=== PATIENT | female | born 1970 | race Caucasian/White ===

== ENCOUNTER 2018-11-30 13:20 | Emergency (ER) | payer BC ==
[~2018-11-30] VITALS: Ht 154.9 cm; Wt 93.2 kg
[2018-11-30 13:31] VITALS: BP 152/91
== END 2018-11-30 15:13 | disposition home or self-care (01) ==
LOC: ER 13:21
DX: S90.32XA Contusion of left foot, initial encounter (principal); Z88.2 Allergy status to sulfonamides; W20.8XXA Other cause of strike by thrown, projected or falling object, initial encounter; Y93.89 Activity, other specified; Y92.89 Other specified places as the place of occurrence of the external cause; Y99.9 Unspecified external cause status
CPT/HCPCS: 73630; 99283

== ENCOUNTER 2025-01-22 18:09 | Emergency (ER) | payer BC ==
[~2025-01-22] VITALS: Ht 157.5 cm; Wt 95.9 kg
[~2025-01-22 18:09] MED LIST: MECL-302 PO
--- NOTE | 2025-01-22 19:41 | Physician Documentation ---
History of Present Illness ~ Chief Complaint: Arm Pain Stated Complaint: RT ARM PAIN Time Seen by MD: 18:54 HPI 54-year-old female with a history of tennis elbow presents with pain and swelling in the right forearm today. She states she did not do anything the causing acute injury other than reaching for bar of soap today. Patient states that she did not previously have a cortisone steroid shot in her right effect of the elbow Day of Onset: Jan 22, 2025 Tetanus within 5 years: No Medication Reconciliation Allergies: Coded Allergies: Sulfa (Sulfonamide Antibiotics) (Verified Allergy, Intermediate, 11/30/18) Scheduled Meclizine HCl (Meclizine HCl), 1 TAB PO TID PRN Past Medical History Past Medical History: No Pertinent History Past Surgical History: noncontributory Alcohol Use: None Drug Use: none Lives with: Spouse Lives In: Home Review of Systems All Other Systems at this time: Reviewed and Negative ROS As stated above in the HPI, otherwise all systems are reviewed and negative. Physical Exam Vital Signs: Temperature: 99.1, Source: Temporal, Heart Rate: 86, Respiratory Rate: 20, BP: 164/108, Pulse Oximetry: 96, Weight: 95.900 Oxygen Flow Rate: 0 Physical Exam General: Alert, no apparent distress. HEENT: PERRL, EOMI, no injection, moist mucous membranes. Extremities: Normal range of motion, tenderness to the extensor tendons proximal insertion site right side Neurologic: Oriented x4. Psychiatric: Normal mood and affect. Skin: Normal color, warm and dry. No edema, no ecchymosis. Progress Results/Orders Results/Orders Vital Signs 01/22/25 01/22/25 18:18 20:21 Temp 99.1 98.6 Pulse 86 84 Resp 20 18 B/P (MAP) 164/108 160/99 Pulse Ox 96 99 O2 Flow Rate 0 Medical Decision Making Findings Suspect a minor tear or pull of the extensor tendons at the insertion site in the right elbow. This may be due to patient's previous injury requiring corticosteroid injections essentially causing decreased connective tissue strength. I do not suspect full tear at this time patient is still meets criteria for physical therapy Departure Disposition: HOME / SELF CARE / HOMELESS Impression: Primary Impression: Tendinitis Additional Impression: Elbow pain, right Condition: Stable Discharge Instructions: Muscle Strain, [id number], Tendinitis Additional Instructions: Sure to follow up with your orthopedic surgeon and/or primary care. You may benefit from a referral to go see his physical therapist Referrals: NO PRIMARY CARE PROVIDER (PCP) Education Educated: Patient Educated regarding: diagnosis Signature Scribe Signature: t Attestation: Scribed for Jason Mae Bilingual Medical Receptionist by Jason Mohan NP . 01/22/25 23:25 JASON MAE NP Jan 22, 2025 19:41
[2025-01-22 20:21] VITALS: BP 160/99; PULSE 84; RESP 18; TEMP 98.6; O2SAT 99
== END 2025-01-22 20:23 | disposition home or self-care (01) ==
LOC: ER 18:09
DX: M77.9 Enthesopathy, unspecified (principal); M79.631 Pain in right forearm; M25.521 Pain in right elbow; Z88.2 Allergy status to sulfonamides
CPT/HCPCS: 99282

== ENCOUNTER 2025-05-30 12:17 | Inpatient (IN) | payer BC ==
[~2025-05-30] VITALS: Ht 157.5 cm; Wt 88.2 kg
[2025-05-30] VITALS (15 sets, daily range): BP systolic 100–133; BP diastolic 52–83; PULSE 18–93; RESP 16–28; TEMP 97.8–98; O2SAT 91–100
--- NOTE | 2025-05-30 12:32 | Physician Documentation ---
History of Present Illness General Chief Complaint: Abdominal Pain w/vomiting Stated Complaint: GALLBLADDER PAIN Time Seen by MD: 12:32 History of Present Illness Initial Comments The patient is a 55-year-old female who complains of proximally 2 hours with the epigastric pain that radiates to her back with nausea. Patient states she had an episode on Wednesday of similar pain that lasted about 8 hours with nausea and vomiting. The patient states she has a known gallstones. Patient states she just eaten and then developed the abdominal pain. The patient complains of some subjective chills and decreased appetite since there episode on Wednesday. The patient complains of some nausea but no vomiting today. Medication Reconciliation Allergies: Coded Allergies: Sulfa (Sulfonamide Antibiotics) (Verified Allergy, Intermediate, 05/30/25) Scheduled Meclizine HCl (Meclizine HCl), 1 TAB PO TID PRN Past Medical History Past Medical History: No Pertinent History Past Surgical History: noncontributory Alcohol Use: None Drug Use: none Lives with: Spouse Lives In: Home Review of Systems All Other Systems at this time: Reviewed and Negative Physical Exam Physical Exam Vital Signs: Temperature: 98.0, Source: Temporal, Heart Rate: 84, Respiratory Rate: 20, BP: 184/118, Pulse Oximetry: 99, Weight: 88.180 Oxygen Flow Rate: 0 Physical Exam VITALS: Reviewed and as above. GENERAL: Alert, no apparent distress. HEENT: Normocephalic, atraumatic, PERRL, EOMI, dry mucosa, no erythema RESPIRATORY: Lungs clear, normal breath sounds, no respiratory distress. CHEST: No accessory muscle use, no retractions CV: Regular rate, rhythm, no edema, no murmur, No: JVD GI: Soft, tender right upper abdomen, no rebound, guarding, or rigidity BACK: No CVA tenderness, or swelling MUSCULOSKELETAL No deformities, no edema SKIN: Warm and dry, no rash NEURO: Oriented x4, No motor or sensory deficit PSYCH: Normal mood and affect, no agitation Progress Results/Orders Results/Orders Orders - OHLNAVID ARREGUIN MD Hydromorphone 0.5 Mg/0.5 Ml/Pf (Dilaudid (05/30/25 12:40) Page Hospitalist (05/30/25 14:38) Fill Out Med Reconciliation (05/30/25 14:38) Cult Urine + [address] (05/30/25 14:42) Page Hospitalist (05/30/25 ) Completed Orders - OHLFS,NAVID Eastman MD Hcg, Ur Ql (05/30/25 12:26) Cbc/Diff (05/30/25 12:26) BMP (05/30/25 12:26) Lipase (05/30/25 12:26) CMP (05/30/25 12:26) Normal Saline 1000ml (0.9% Sodium Chlori (05/30/25 12:40) Normal Saline 1000ml (0.9% Sodium Chlori (05/30/25 12:40) Metoclopramide Inj (Reglan Inj) (05/30/25 12:40) Diphenhydramine Inj (Benadryl Inj.) (05/30/25 12:40) Ketorolac Trometh 15mg/Ml Vial (Toradol (05/30/25 12:45) Ceftriaxone 2gm/D5w 50ml Bag (Rocephin 2 (05/30/25 13:20) Ua W/Microscopic, Cult If Ind (05/30/25 14:00) Lipid Panel (05/30/25 12:37) Vital Signs 05/30/25 05/30/25 05/30/25 12:20 13:00 15:07 Temp 98.0 98.0 Pulse 84 84 Resp 20 14 14 B/P (MAP) 184/118 185/96 (125) Pulse Ox 99 98 O2 Flow Rate 0 0 Laboratory Tests Test 05/30/25 12:37 05/30/25 14:00 White Blood Count 8.4 Red Blood Count 5.15 Hemoglobin 14.5 Hematocrit 42.4 Mean Corpuscular Volume 82.3 Mean Corpuscular Hemoglobin 28.2 Mean Corpuscular Hemoglobin Concent 34.2 Red Cell Distribution Width 13.2 Platelet Count 219 Mean Platelet Volume 8.1 Neutrophils (%) (Auto) 69.3 Lymphocytes (%) (Auto) 21.8 Monocytes (%) (Auto) 6.3 Eosinophils (%) (Auto) 2.0 Basophils (%) (Auto) 0.6 Neutrophils # (Auto) 5.9 Lymphocytes # (Auto) 1.8 Monocytes # (Auto) 0.5 Eosinophils # (Auto) 0.2 Basophils # (Auto) 0.0 CBC Comment Sodium Level 142 Potassium Level 3.8 Chloride Level 110 H Carbon Dioxide Level 24.7 Anion Gap 7 L Blood Urea Nitrogen 14 Creatinine 0.83 Estimated GFR/1.73 m2 71 BUN/Creatinine Ratio 16.9 Glucose Level 98 Calcium Level 8.8 Total Bilirubin 1.1 H Aspartate Amino Transf (AST/SGOT) 82 H Alanine Aminotransferase (ALT/SGPT) 51 Alkaline Phosphatase 93 Total Protein 7.4 Albumin 3.7 Globulin 3.7 Albumin/Globulin Ratio 1.0 L Triglycerides Level 128 Cholesterol Level 250 H LDL Cholesterol 167 H HDL Cholesterol 64 H Cholesterol/HDL Ratio 3.9 Lipase 42 Chemistry Comments Urine Specimen Description Urinal Urine Color Yellow Urine Clarity Clear Urine pH 6.5 Urine Specific [place] <=1.005 Urine Protein Negative Urine Glucose (UA) Negative Urine Ketones Negative Urine Occult Blood Negative Urine Nitrite Negative Urine Bilirubin Negative Urine Urobilinogen 0.2 Urine Leukocyte Esterase Trace H Urine RBC None seen Urine WBC 5-10 H Urine Squamous Epithelial Cells Moderate Urine Bacteria Few Urine Mucus None seen Urine Culture Indicated Indicated Volume Urine Centrifuged 10 ml Urine HCG, Qualitative Negative Urine Comment Microbiology Date/Time Source Procedure Growth Status 05/30/25 14:42 Urine Urinal (Er Only) Urine Culture - Preliminary NO GROWTH AFTER 1 DAY Resulted Medical Decision Making Additional information obtaine: old records Findings Be patient presented with abdominal pain and right upper abdominal tenderness. Patient was found to have gallstones including one stuck in the neck of her gallbladder. The patient was given pain medication and a dose of ceftriaxone, be patient's labs and imaging have been reviewed. Patients prior hospitalizations have been reviewed. she will patient will be admitted to the hospitalist and I have discussed the case with the surgeon physician surgeon Differential Diagnosis gastritis GERD colitis Departure Admitted to Inpatient Unit: yes, to hospitalist Impression: Primary Impression: Biliary colic Referrals: NO PRIMARY CARE PROVIDER (PCP) Signature Scribe Signature: no scribe Attestation: The note accurately reflects work and decisions made by me.Navid Frank MD 05/31/25 14:12 NAVID FRANK MD May 30, 2025 12:32
[2025-05-30] MEDS ORDERED: ketorolac trometh 30MG/ML vial 30 MG/ML VIAL IV ONE (12:40)
[2025-05-30] MEDS: normal saline 1000ML IV soln IVB ONE ×2 (12:49→14:10)
[2025-05-30 12:50] LABS: MEAN PLATELET VOLUME 8.1 FL (7.4-10.4); RED CELL DISTRIBUTION WIDTH 13.2 % (11.5-14.5)
[2025-05-30] MEDS: metoclopramide 5 mg/ml inj IV ONE (12:52)
[2025-05-30] MEDS: ketorolac trometh 15mg/ml vial 15 MG/ML ML IV ONE (13:00)
[2025-05-30 13:20] LABS: CREATININE 0.83 MG/DL (0.40-0.90); TOTAL CARBON DIOXIDE 24.7 MMOL/L (24-32); eCRCL 59 ML/MIN; eGFR 71 ML/MIN
[2025-05-30] MEDS: CefTRIAXone 2gm/D5W 50ml BAG 50 ML IV ONE (14:08)
[2025-05-30 14:23] LABS: LEUKOCYTE ESTERASE ,URINE TRACE (Neg); NITRITES, URINE NEGATIVE (Neg); OCCULT BLOOD,URINE NEGATIVE (Neg); URINE HCG NEGATIVE (NEG)
[2025-05-30 14:40] LABS: UA COLLECTION TYPE URINAL
[2025-05-30 14:42] LABS: MUCUS STRANDS NONE SEEN /LPF (Neg); SQUAMOUS EPITHELIAL CELL,UR MODERATE /LPF (FEW)
[2025-05-30] MEDS ORDERED: ondansetron/PF 4mg/2ml inj IV PRN (15:20)
[2025-05-30] MEDS ORDERED: magnesium sulf-water 4G/100mL 100 ML IV PRN (15:20)
[2025-05-30] MEDS ORDERED: mag hydrox/Alum hydrox/simeth 30ml oral suspension PO PRN (15:20)
[2025-05-30] MEDS ORDERED: magnesium hydroxide 30ml (MOM) UD suspension PO PRN (15:20)
[2025-05-30] MEDS ORDERED: magnesium Cl slow-release 64mg tablet PO PRN (15:20)
[2025-05-30] MEDS ORDERED: HYDROcodone/acetaminophen 5mg/325mg tablet PO PRN (15:20)
[2025-05-30] MEDS ORDERED: magnesium sulf-water 2g/50mL 50 ML IV PRN (15:20)
[2025-05-30] MEDS ORDERED: potassium Cl 40MEQ/1/2NS 520ml 520 ML IV PRN (15:20)
[2025-05-30] MEDS ORDERED: potassium Cl 20 mEq SR tablet PO PRN ×2 (15:20)
[2025-05-30] MEDS: normal saline 1000ml 1,000 ML IV SCH (15:31)
--- NOTE | 2025-05-30 15:32 | RADIOLOGY REPORT ---
INDICATION: acute fernanda TECHNIQUE: Multiple real-time sonographic images were obtained of the right upper quadrant. COMPARISON: None FINDINGS: The liver demonstrates homogeneous echotexture without focal mass lesions. The liver measures 17 cm. There is no intrahepatic or extrahepatic ductal dilatation. The common duct measures 0.6 cm. Cholelithiasis. The gallbladder wall measures 0.2 cm and is within normal limits. Positive sonographic Gatica's. The right kidney measures 10.1 cm. The right kidney is normal in contour, size, and shape. The echogenicity is normal. There is no hydronephrosis. The pancreas is not well visualized due to overlying bowel gas. IMPRESSION: Cholelithiasis and positive sonographic Gatica's. Clinical correlation advised.
--- NOTE | 2025-05-30 15:55 | ELECTROCARDIOGRAPH REPORT ---
[facility] Test Date: 2025-05-30 Test Time: 15:44:10 Pat Name: AMARIS MOSER Department: EMERGENCY ROOM Room: [place] [address] Gender: F Production Roustabout: BRYANT : 1970 Requested By: DARSHANA HERNANDEZ Order Number: [id number] Reading MD: Dr. WINSTON Solomon Measurements Intervals [place] Rate: 74 P: 69 [place]: 127 QRS: 60 QRSD: 88 T: 62 QT: 416 QTc: 462 Interpretive Statements Sinus rhythm Low voltage, precordial leads Electronically Signed On 06-01-2025 16:51:[address] WINSTON Solomon Please click the below link to view image of tracing.
--- NOTE | 2025-05-30 16:08 | HISTORY AND PHYSICAL-Residence ---
History & Physical Providers to CC Resident Creating Document: KANDI PADGETT, UZAIR ~ History of Present Illness Reason for Admit\Complaint: Abdominal pain History of Present Illness This is a 55-year-old woman who presented to the ER with complaints of nausea, right upper quadrant and epigastric pain, radiating to the back, between her shoulder blades. Her symptoms started on Wednesday, after dinner. She attributed her nausea and abdominal pain to eating from a restaurant. Pain was cramping, 8/10, radiating to shoulder blades, relieved with medication, no aggravating factors. She had 4 episodes of vomiting, continue with particles. She had a similar episode of nausea and pain today morning which prompted her to come to the ER. No complaints of fever/chills, diarrhea/constipation, chest pain, palpitation, dizziness, syncope. no history of abdominal distention, no symptoms of obstructive jaundice. No similar complaints in the past. She has history of high blood pressure, was on lisinopril 10 mg p.o. daily, which she discontinued after talking to her primary care provider. She has a episodes of high reading of the pressure at home going up to 150s over 80s. Allergies: Coded Allergies: Sulfa (Sulfonamide Antibiotics) (Verified Allergy, Intermediate, 05/30/25) Home Medications Home Medications Active Meclizine HCl 25 Mg Tablet 1 Tab PO TID PRN 10 Days Past Medical History Past Medical History Hypertension, not on any medication Past Surgical History Surgical History Comment Appendectomy Neck, wrist, knee surgeries. Past Social History Smoking: Non-Smoker Alcohol Use: Occasionally Drug Use: Marijuana Lives with: Alone Lives In: Home ROS All Other Systems: Reviewed and Negative Gastrointestinal: Reports: abdominal pain, nausea Exam Vitals: Vital Signs Date Time Temp Pulse Resp B/P (MAP) Pulse Ox O2 Delivery O2 Flow Rate FiO2 05/30/25 15:12 05/30/25 15:07 98.0 84 14 98 0 General: General: Obese, Well alert, well oriented, not confused, not agitated, not in acute distress, well cooperated during the physical. HEENT: Conjunctive are pink, sclerae clear, no icterus, pupil is equal in both sides, reactive to light, no ear discharge, no pharyngeal erythema or an edema. Neck: Supple, no JVD, no lymphadenopathy and thyromegaly. Chest: Equal air entry on both lungs, no added sounds, no wheeze. Cardiovascular: S1-S2 regular sinus rhythm and, regular rate, no gallops, no rubs, no murmurs Abdomen: Gatica sign positive, tenderness to deep palpation in right upper quadrant and epigastric region. Bowel sounds present on auscultation, soft, no guarding, no rigidity Extremities: No obvious deformities, no pitting edema bilaterally, capillary refill intact, peripheral pulsations are intact on both sides Central Nervous System: No focal neurological deficits, no motor or sensory weakness in all 4 extremities, could move all 4 extremities, 2+ deep tendon reflexes, negative Babinski. Musculoskeletal: No joint swelling, deformities, inflammations, and no scoliosis and back tenderness Skin: Warm and dry. Diagnostic Data Last Recorded Lab Results: 05/30/25 1237 05/30/25 1237 Counseling Services Smoking & Tobacco Cessation: N/A Advance Care Planning Advanced Care plannin - 30 Minutes Additional Plan Cholelithiasis with choledocholithiasis, without evidence of cholecystitis. Vitals: High blood pressure, 180/100. No signs of infective process, CBC normal CMP shows raised AST with normal bilirubin level and alkaline phosphatase, normal urinalysis. Normal amylase Ultrasound shows cholelithiasis with CBD 0.6 cm in diameter. Plan: Surgery consulted, NPO from now, surgery planned at 5:00 p.m. today. Pain well controlled with [place] and hydromorphone. Nausea well controlled with Zofran and Reglan p.r.n. One dose of antibiotics ceftriaxone 1 g with Zosyn to be given in ER. Awaiting lipid panel. Hypertension Continuing of high blood pressure might be due to pain, acute setting. Not on any medication, ordered echo. Code status: Full code DVT prophylaxis: Heparin 5000 subcutaneous q.8h Analgesia/sedation: Morphine/[place] Line/tube: PIV GI prophylaxis: None Nutrition: Regular diet PT: Ordered. Prognosis: Guarded Disposition: Surgery at 5:00 p.m. today, admit to surgery. I discussed the code status with the patient for 16 minutes including various resuscitative methods, the patient chose to be full code. Kandi Padgett MD PGY1, Internal Medicine [facility] Date of Service: May 30, 2025 Billing Provider: DARSHANA HERNANDEZ MD Common Visit Codes: [id number] INP/OBS CARE (HIGH) Secondary Visit Codes: [id number] CARE PLAN 30 MINUTES KANDI PADGETT, RES May 30, 2025 16:08 DARSHANA HERNANDEZ MD Jun 01, 2025 06:32
--- NOTE | 2025-05-30 16:13 | PROGRESS NOTE ---
Progress Note ID Providers to CC ~ Progress Note Progress Note: pt seen and examined-findings consistent ith symptomatic cholelithiasis-pt needs robo fernanda-possible open-discussed procedure including risks/benefits/alternatives RASHI DOSHI MD May 30, 2025 16:13
[2025-05-30 16:19] LABS: CHOL/HDL RATIO 3.9 (0.00-4.99); LDL CHOLESTEROL 167 MG/DL (50-100)
[2025-05-30] MEDS ORDERED: iohexol 300mg/ml 100ml inj. ONE (16:26)
--- NOTE | 2025-05-30 17:11 | RADIOLOGY REPORT ---
Exam: CT CT ABDOMEN PELVIS W/ IV CONTRAST History: pain Comparison Study: US ULTRASOUND OF ABDOMEN on DOS: 05/30/25 TECHNIQUE: A digital disaster recovery consultant image was obtained. During the uneventful, intravenous administration of contrast material, multislice data acquisition was obtained through the abdomen and pelvis. The data set was subsequently reconstructed into multiplanar reformats. RADIATION DOSE: CTDI vol 30.6 mGy. DLP 1591.3 mGy.cm Findings: Lungs: The lung bases are clear. Liver: Unremarkable. Spleen: Unremarkable. Pancreas: Unremarkable. Gallbladder: Cholelithiasis and choledocholithiasis. Intra and extrahepatic biliary ductal dilatation. Trace pericholecystic stranding. Adrenals: Unremarkable Kidneys: Unremarkable. Pelvic Viscera: 3.0 cm right adnexal cyst. Vasculature: Atherosclerotic aortoiliac calcification. Retroperitoneum: Unremarkable. Bowel: No bowel obstruction. Musculoskeletal: Unremarkable. Soft tissues: Unremarkable Impression: 1. Cholelithiasis and choledocholithiasis with possible early acute cholecystitis. Further clinical correlation is suggested. 2. Additional findings as detailed.
[2025-05-30] MEDS ORDERED: BUPIVAcaine 2.5mg/ml inj 50ml vial (contains preservative) ONE (17:26)
[2025-05-30] MEDS ORDERED: midazolam 1 mg/ML 2ml injection ONE (17:35)
[2025-05-30] MEDS ORDERED: fentaNYL/PF 50MCG/1 ML 2ML syringe ONE ×2 (17:35→17:54)
[2025-05-30] MEDS ORDERED: LIDOcaine 2% (20mg/ml) 5ml vial ONE (17:39)
[2025-05-30] MEDS ORDERED: propofol inj 20 ML IV ONE (17:39)
[2025-05-30] MEDS ORDERED: ketorolac trometh 30MG/ML vial 30 MG/ML VIAL ONE (17:47)
[2025-05-30] MEDS ORDERED: acetaminophen 1,000mg/100ml IV 100 ML IV ONE (17:48)
[2025-05-30] MEDS ORDERED: fentaNYL/PF 50MCG/1 ML 2ML syringe IV PRN ×2 (18:25)
[2025-05-30] MEDS ORDERED: labetalol 20mg/4ml (5mg/ml) syringe IV PRN (18:25)
[2025-05-30] MEDS ORDERED: enalaprilat 1.25mg/ml 2ml vial IV PRN (18:25)
[2025-05-30] MEDS ORDERED: HYDROmorphone/PF 0.2 MG/ML SYRINGE IV PRN ×2 (18:25)
[2025-05-30] MEDS ORDERED: ondansetron/PF 4mg/2ml inj ONE (18:45)
[2025-05-30] MEDS ORDERED: dexamethasone sod phosphate 4mg/ml inj. ONE (18:45)
--- NOTE | 2025-05-30 19:02 | OPERATIVE REPORT ---
Operative Report Providers to CC ~ Date of Procedure: May 30, 2025 Pre-Operative Diagnosis: cholelithiasis Post-Operative Diagnosis SAME as PRE-Op Procedure Performed jaz michael Surgeon: landen Biomedical Specialist none Anesthesiologist: Dmitry Puga Type of Anesthesia: General Findings: distended gb/adhesions Estimated Blood Loss: 50 ml Specimen Removed: RASHI Mejia MD May 30, 2025 19:02
[2025-05-30] MEDS ORDERED: HYDROmorphone inj. 0.5 MG/0.5 ML DISP.SYRIN IV PRN (19:10)
[2025-05-30] MEDS ORDERED: PCA WASTE DOCUMENTATION 1 MG ML MC SCH (19:10)
[2025-05-30] MEDS: morphine 4 MG/ML inj SYRINge IV PRN (19:40)
[2025-05-30] MEDS: K and/or MAG REPLACEMENT MC SCH (20:00)
[2025-05-30] MEDS: heparin, porcine 5000 units/ml vial SQ SCH (21:35)
[2025-05-30] MEDS: docusate sod 100mg capsule PO SCH (21:37)
[2025-05-30] MEDS: ringers solution, lacted 1,000 ML IV SCH (23:07)
[2025-05-31] VITALS (9 sets, daily range): BP systolic 117–177; BP diastolic 64–87; PULSE 62–75; RESP 14–20; TEMP 97.8–99.1; O2SAT 95–98
[2025-05-31] MEDS: ceFOXitin 1 GM/D5W 50mL IVPB 50 ML IV SCH (01:00)
[2025-05-31] MEDS: HYDROcodone/acetaminophen 5mg/325mg tablet PO PRN (01:12)
[2025-05-31] MEDS: ondansetron/PF 4mg/2ml inj IV PRN ×3 (01:17→17:30)
[2025-05-31 05:01] LABS: MEAN PLATELET VOLUME 8.2 FL (7.4-10.4); RED CELL DISTRIBUTION WIDTH 13.6 % (11.5-14.5)
[2025-05-31 05:30] LABS: CREATININE 0.96 MG/DL (0.40-0.90); TOTAL CARBON DIOXIDE 21.3 MMOL/L (24-32); eCRCL 51 ML/MIN; eGFR 60 ML/MIN
[2025-05-31] MEDS: piperacillin/tazo 4.5gm/100ml 100 ML IV SCH (12:55)
--- NOTE | 2025-05-31 14:24 | PROGRESS NOTE ---
Progress Note ID Providers to CC ~ Progress Note Progress Note: pain improving/vss/abd-drain output noted/labs noted a/p 1. s/p fernanda-lfts up/repeat labs in am RASHI DOSHI MD May 31, 2025 14:24
--- NOTE | 2025-05-31 19:20 | PROGRESS NOTE- Residence ---
Progress Note - Resident Providers to CC Resident Creating Document: KANDI SHIRLEY, UZAIR ~ Central Line/PICC still needed: N\A Noel-Non Protocol Noel Indications Met/Not Met: F/C Indications Not Met Antibiotic Timeout Antibiotic Ordered?: Yes Subjective Patient was examined bedside. Postop day 1 cholecystectomy. Tolerated the procedure well. No acute symptoms overnight. Currently on full liquid diet. Complaining of pain in the operative site, well managed with [place]. Passing flatus, not passed stools yet. Objective Vital Signs Date Time Temp Pulse Resp B/P (MAP) Pulse Ox O2 Delivery O2 Flow Rate FiO2 05/31/25 17:27 20 05/31/25 10:15 126/70 (88) 05/31/25 10:00 98.9 72 97 Room Air 05/31/25 08:00 0.0 Result Diagram: 05/31/2544405/31/25444 General: Well alert, well oriented, not confused, not agitated, not in acute distress, well cooperated during the physical. HEENT: Conjunctive are pink, sclerae clear, no icterus, pupil is equal in both sides, reactive to light, no ear discharge, no pharyngeal erythema or an edema. Neck: Supple, no JVD, no lymphadenopathy and thyromegaly. Chest: Equal air entry on both lungs, no added sounds, no wheeze. Cardiovascular: S1-S2 regular sinus rhythm and, regular rate, no gallops, no rubs, no murmurs Abdomen: Surgical site bandaged, no soakage of bandages, Bowel sounds present on auscultation, soft, nontender, no guarding, no rigidity Extremities: No obvious deformities, no pitting edema bilaterally, capillary refill intact, peripheral pulsations are intact on both sides Central Nervous System: No focal neurological deficits, no motor or sensory weakness in all 4 extremities, could move all 4 extremities, 2+ deep tendon reflexes, negative Babinski. Musculoskeletal: No joint swelling, deformities, inflammations, and no scoliosis and back tenderness Skin: Warm and dry. Counseling Services Smoking & Tobacco Cessation: N/A Advance Care Planning Advanced Care planning: N/A Assessment Assessment Assessment: Recurrent cholelithiasis with choledocholithiasis. Postop day 1 cholecystectomy. Monitoring LFTs. Plan to transfer for ERCP in case LFTs worsen. Plan Plan Cholelithiasis with choledocholithiasis, without evidence of cholecystitis. Vitals: High blood pressure No signs of infective process, CBC normal without leukocytosis CMP hyperbilirubinemia with markedly raised AST and ALT. Might be secondary to intraoperative process. Ultrasound shows cholelithiasis with CBD 0.6 cm in diameter. Abdominal CT shows choledocholithiasis. Plan: Started Zosyn 4.5 g q.8h Pain well controlled with [place], nausea well controlled with Zofran and Reglan p.r.n. Monitor LFTs. Plan to transfer her to a center with ERCP in case liver function tests worsen. Dr. Keating informed. Advance diet as per surgery recommendation. Hypertension and dyslipidemia ASCVD score 5.5% Patient was on lisinopril a couple of months back before she discussed with the primary care provider and stopped. She has consistently elevated high blood pressure. Currently not interested in starting any medications after discussing the risks and benefits of elevated blood pressure. She needs to be started on moderate intensity statin because of 10 year risk between 5-7.5% Code status: Full code DVT prophylaxis: Heparin 5000 subcutaneous q.8h Analgesia/sedation: Morphine/[place] Line/tube: PIV GI prophylaxis: None Nutrition: Full liquid PT: Ordered. Prognosis: Guarded Disposition: Monitoring LFTs. Plan to transfer for ERCP in case LFTs worsen. Kandi Shirley MD PGY1, Internal Medicine [facility] Date of Service: May 31, 2025 Billing Provider: DARSHANA HERNANDEZ MD Common Visit Codes: [id number] INP/OBS CARE(HIGH) KANDI SHIRLEY, RES May 31, 2025 19:20 DARSHANA HERNANDEZ MD Jun 01, 2025 06:31
--- NOTE | 2025-06-01 03:55 | CONSULTATION ---
DATE OF CONSULTATION: 05/30/2025 DICTATING PHYSICIAN: Kenneth Keating MD REASON FOR CONSULTATION: Evaluation of abdominal pain. HISTORY OF PRESENT ILLNESS: This is a 55-year-old female with complaints of abdominal discomfort. Ultrasound revealed multiple stones. Radiographs were requested. On further questioning, the patient complains of epigastric pain, precipitated by fatty food intake. No history of peptic ulcer disease. She had a couple of episodes of similar type symptoms, both precipitated by fatty food intake. PAST MEDICAL HISTORY: Negative. PAST SURGICAL HISTORY: Appendectomy. Neck, wrist and knee procedures. HOME MEDICATIONS: Meclizine. ALLERGIES: TO SULFA. SOCIAL HISTORY: The patient denies tobacco use. Occasional alcohol use. She uses PCP. PHYSICAL EXAMINATION: GENERAL: She is a well-nourished female, in no distress. VITAL SIGNS: Unremarkable. HEART: Regular rate and rhythm. LUNGS: Clear to auscultation. ABDOMEN: Shows some epigastric tenderness. EXTREMITIES: Unremarkable. NEUROLOGIC: Nonfocal. LABORATORY DATA: WBC 8, hematocrit of 42, platelet count is 219. Chemistries include total bilirubin 1.1, AST 82, ALT 51, alkaline phosphatase 93, and cholesterol is 250. IMAGING STUDIES: Ultrasound reveals multiple stones. CAT scan confirms the presence of multiple stones and question of the common duct stone noted. IMPRESSION: Question of choledocholithiasis. RECOMMENDATIONS: Bilirubin is normal. The patient may need ERCP. If bili becomes more elevated, stones may pass. Kenneth Keating MD TID: [id number] RECEIPT: [id number] CARLOZ/Domi Lozano
--- NOTE | 2025-06-01 04:01 | OPERATIVE REPORT ---
DATE OF SURGERY: 05/30/2025 DICTATING PHYSICIAN: Kenneth Keating MD PREOPERATIVE DIAGNOSES: Cholelithiasis, choledocholithiasis. POSTOPERATIVE DIAGNOSES: Cholelithiasis, choledocholithiasis. PROCEDURE PERFORMED: Robotic cholecystectomy. SURGEON: Kenneth Keating MD ANESTHESIA: General/Dr. Puga. DRAINS: Hemanth x 1. INDICATIONS FOR OPERATION: This is a 55-year-old female who presented with recurrent abdominal discomfort, found to have cholelithiasis with choledocholithiasis. The was normal. She is scheduled for robotic cholecystectomy with a plan to watch her over the course of the next few days and see if her common duct stone passes. INTRAOPERATIVE FINDINGS: Distended gallbladder with adhesions. DESCRIPTION OF PROCEDURE: The patient was placed supine on the operating table. After induction of general anesthesia and placement of endotracheal tube, the abdomen was prepped and draped. A subxiphoid incision was then made and Lora port placed using open technique and pneumoperitoneum was begun by insufflation of CO2. Additional ports were placed in lower abdomen. Robot was then brought to the field. Camera port was then docked. Camera placed, camera targeted. Additional ports were then docked and instruments placed. Abdomen was then explored. The patient had a second port placed because of too high a position of the camera. Gallbladder fundus was grasped and retracted cephalad. Adhesions were taken down. Cystic duct identified, isolated, ligated, clipped and divided the cystic artery. The gallbladder was mobilized off the gallbladder fossa. When hemostasis was found to be adequate, robotic instruments were removed as well as robot was removed from the field. Gallbladder was placed in the Endobag using laparoscope. Abdomen was copiously irrigated with large amount of antibiotic-containing solution. Hemostasis was found to be adequate. A drain was placed through a port incision directly in the gallbladder fossa. Ports were removed under laparoscopic vision without active bleeding. The final port and camera were withdrawn and the pneumoperitoneum was evacuated. Wounds were closed in layers. Skin was closed with subcuticular stitch and dressing was applied. The patient was transferred to recovery in stable condition. Kenneth Keating MD TID: [id number] RECEIPT: [id number] /[facility] – [place]
[2025-06-01 04:56] LABS: MEAN PLATELET VOLUME 8.2 FL (7.4-10.4); RED CELL DISTRIBUTION WIDTH 13.6 % (11.5-14.5)
[2025-06-01 05:15] LABS: CREATININE 1.08 MG/DL (0.40-0.90); TOTAL CARBON DIOXIDE 25.8 MMOL/L (24-32); eCRCL 45 ML/MIN; eGFR 52 ML/MIN
[2025-06-01 07:00] VITALS: BP 114/58; PULSE 56; RESP 18; TEMP 98.5; O2SAT 96
[2025-06-01 07:25] VITALS: RESP 18; O2SAT 96
[2025-06-01 10:06] VITALS: BP 116/63; PULSE 63; RESP 14; TEMP 97.8; O2SAT 95
[2025-06-01] MEDS: HYDROmorphone inj. 0.5 MG/0.5 ML DISP.SYRIN IV PRN (11:18)
[2025-06-01] MEDS ORDERED: magnesium hydroxide 30ml (MOM) UD suspension PO SCH (12:30)
[2025-06-01] MEDS: magnesium hydroxide 30ml (MOM) UD suspension PO SCH (12:49)
--- NOTE | 2025-06-01 13:03 | PROGRESS NOTE ---
Progress Note ID Providers to CC ~ Progress Note Progress Note: complains of pain/vss/abd-mild distention/labs noted a/p 1. s/p fernanda-bili improving/diet as jaquelin-repeat lfts in am RASHI DOSHI MD Jun 01, 2025 13:03
[2025-06-01] MEDS: ketorolac trometh 30MG/ML vial 30 MG/ML VIAL IV SCH (13:59)
[2025-06-01 18:00] VITALS: BP 122/63; PULSE 61; RESP 14; TEMP 97.9; O2SAT 95
--- NOTE | 2025-06-01 18:21 | PROGRESS NOTE- Residence ---
Progress Note - Resident Providers to CC Resident Creating Document: ALFA RUFFIN, UZAIR ~ Central Line/PICC still needed: No Noel-Non Protocol Noel Indications Met/Not Met: F/C Indications Not Met Antibiotic Timeout Antibiotic Ordered?: Yes Subjective Patient was able to tolerate a full liquid diet today but was unable tolerate a regular diet today. She developed worsening of left-sided abdominal pain after eating. She has been also requesting for every 4-6 hours of pain medication to control her pain. Has not had any vomiting or febrile periods. Objective Vital Signs Date Time Temp Pulse Resp B/P (MAP) Pulse Ox O2 Delivery O2 Flow Rate FiO2 06/01/25 10:06 97.8 63 14 116/63 (80) 95 Room Air 06/01/25 07:25 0.0 Result Diagram: 06/01/2544606/01/25446 General: Awake and Alert, no acute distress. HEENT: Conjunctiva pink, Sclera clear, Mucus Membranes moist. Resp: Unlabored. Lungs clear to auscultation bilaterally. Heart: Regular Rate and rhythm, normal S1 and S2 without murmur, rub or gallop. Abdomen: Mildly distended with left-sided tenderness. No epigastric tenderness. Bowel sounds present. Extremities: No cyanosis,clubbing or edema. Skin: Warm and Dry. Assessment Assessment This is a 55-year-old female patient who came into the hospital with symptoms of recurrent biliary colic and was found to have numerous number of gallbladder stones due to which she was taken up for cholecystectomy. She was also found to have gallstones in the CBD, developed acute non fulminant hepatitis in the resolving stage after the procedure and continues to have abdominal pain. Although she remains hemodynamically stable, she is currently being monitored closely for symptoms as well as labs. Plan Plan Recurrent biliary colic: Status post cholecystectomy; day two Hemodynamically stable Drain output off 55 cc today, continue monitoring. Consider removing if less than 30 cc Surgery, Dr. Fitch on board Pain control with prn [place], Dilaudid and Toradol q.6 hours Maintain full liquid diet until able to tolerate Choledocholithiasis: Persistent abdominal pain likely secondary to above We will continue close monitoring for acute pancreatitis Abdomen and pelvis reveals presence of choledocholithiasis with intrahepatic and extrahepatic biliary ductal dilatation Mildly elevated bilirubin and alkaline phosphatase are likely secondary to above; improving labs Follow MRCP results. If persistence of gallstones, we will transfer the patient for ERCP Continue pain management as above Continue full liquid diet as above; continue LR at 100 cc/hour. Discontinue NS Acute non fulminant hepatitis: Likely post cholecystectomy; not a complication of the surgery ALT>AST; Improving LFTs Continue monitoring CMP Hypertension Well-controlled; not on any medications currently Initial elevation likely secondary to pain and anxiety Outpatient evaluation for medications if required Goal between 120-130 mmHg Dyslipidemia Class 1 obesity ASCVD score 5.5% LDL 167; nondiabetic Does not qualify for statin Outpatient recommendation for dietary modifications as well as weight loss strategies Code status: Full code DVT prophylaxis: Heparin q.12h; patient is ambulatory and refusing Analgesia/sedation: Dilaudid/Morphine/[place]/Toradol Line/tube: PIV GI prophylaxis: None Nutrition: Full liquid Disposition: Monitoring LFTs and MRCP. Plan to transfer for ERCP if LFTs worsened or MRCP reveals presence of stones Alfa Ruffin PGY3, Internal medicine resident Patient was seen, examined and discussed with the attending MD, Dr. Hernandez Date of Service: Jun 01, 2025 Billing Provider: DARSHANA HERNANDEZ MD Common Visit Codes: [id number] INP/OBS CARE(HIGH) ALFA RUFFIN, RES Jun 01, 2025 18:21 DARSHANA HERNANDEZ MD Jun 02, 2025 08:58
--- NOTE | 2025-06-01 18:28 | RADIOLOGY REPORT ---
CLINICAL HISTORY: abnormal liver enzymes TECHNIQUE: MRCP of the abdomen was performed without gadolinium. 3D reconstructed images were created under concurrent radiologist supervision and archived on the PACS system. WID: COMPARISON: CT CT ABDOMEN PELVIS W/ IV CONTRAST on DOS: 05/30/25, US ULTRASOUND OF ABDOMEN on DOS: 05/30/25 FINDINGS: The liver is enlarged measuring 18.4 cm. Status post cholecystectomy. There is no biliary ductal dilation. No evidence of choledocholithiasis. The stomach and imaged bowel are within normal limits. The imaged kidneys are unremarkable. The hepatic veins, portal vein, inferior vena cava, and abdominal aorta are normal in caliber. IMPRESSION: Status post cholecystectomy without biliary ductal dilation. Hepatomegaly
[2025-06-01 20:00] VITALS: RESP 14; O2SAT 95
[2025-06-01] MEDS: ringers solution, lacted 1,000 ML IV SCH (21:31)
[2025-06-01 22:00] VITALS: BP 131/66; PULSE 57; RESP 18; TEMP 97.9; O2SAT 98
[2025-06-02 06:44] LABS: MEAN PLATELET VOLUME 8.5 FL (7.4-10.4); RED CELL DISTRIBUTION WIDTH 13.9 % (11.5-14.5)
[2025-06-02 07:07] VITALS: BP 134/67; PULSE 49; RESP 14; TEMP 98.2; O2SAT 97
[2025-06-02 07:18] LABS: CREATININE 0.83 MG/DL (0.40-0.90); TOTAL CARBON DIOXIDE 25.2 MMOL/L (24-32); eCRCL 59 ML/MIN; eGFR 71 ML/MIN
[2025-06-02 10:29] VITALS: RESP 14; O2SAT 97
[2025-06-02] MEDS ORDERED: KETO10TA2 PO (11:24)
[2025-06-02] MEDS ORDERED: PANT-47 PO (11:24)
--- NOTE | 2025-06-02 12:08 | PROGRESS NOTE ---
Progress Note Dictate Providers to CC CC: JANN AGUIRRE MD ~ Progress Note: Subsequent surgical care on a 55-year-old woman who is postoperative day 3. Status post robotic assisted, laparoscopic cholecystectomy Covering for Dr. Kenneth Keating Transient concern for possible choledocholithiasis, however, likely stone has passed as bilirubin and alkaline phosphatase have normalized Drain with small amount of serous output Incisions are clean, dry, and intact Diet as tolerated Safe for discharge from a surgical standpoint Discharge instructions placed Follow up with Dr. Kenneth Keating in two weeks Antibiotic Ordered?: N/A Objective Vitals Vital Signs Date Time Temp Pulse Resp B/P (MAP) Pulse Ox O2 Delivery O2 Flow Rate FiO2 06/02/25 10:29 14 97 Room Air 0.0 06/02/25 07:07 98.2 49 134/67 (89) Lab Results: 06/02/25 0623 06/02/25 0623 JANN AGUIRRE MD Jun 02, 2025 12:08
--- NOTE | 2025-06-02 17:24 | DISCHARGE SUMMARY-Residence ---
Discharge Summary Providers to CC Resident Creating Document: KEN SHIRLEY, RES ~ Discharge Summary Admission Diagnosis: cholelithiasis Hospital Course DATE OF ADMISSION: 05/30/2025 DATE OF DISCHARGE: 06/02/2025 Discharge Diagnosis\Comment: Recurrent cholelithiasis without cholecystitis Choledocholithiasis Status post robot assisted laparoscopic cholecystectomy on 05/30/2025 Operations\Procedures: robot assisted laparoscopic cholecystectomy on 05/30/[address] Keating, surgeon Consultants: Dr. Keating, surgeon Complications: None Condition on DC: Stable New Medications: Ketorolac Tromethamine (Ketorolac Tromethamine) 10 Mg Tablet 1 TAB PO Q6H PRN PRN for pain for 5 Days, #20 TAB 0 Refills Pantoprazole Sodium (PROTONIX tablet) 40 Mg Tablet.dr 40 MG PO DAILY, #10 TAB.SR Continued Medications: Meclizine HCl (Meclizine HCl) 25 Mg Tablet 1 TAB PO TID PRN for 10 Days, #30 TAB Discharge Summary: History of present illness: This is a 55-year-old woman who presented to the ER with complaints of nausea, right upper quadrant and epigastric pain, radiating to the back, between her shoulder blades. Her symptoms started on Wednesday, after dinner. She attributed her nausea and abdominal pain to eating from a restaurant. Pain was cramping, 8/10, radiating to shoulder blades, relieved with medication, no aggravating factors. She had 4 episodes of vomiting, continue with particles. No complaints of fever/chills, diarrhea/constipation, chest pain, palpitation, dizziness, syncope. no history of abdominal distention, no symptoms of obstructive jaundice. No similar complaints in the past. She has history of high blood pressure, was on lisinopril 10 mg p.o. daily, which she discontinued after talking to her primary care provider. She has a episodes of high reading of the pressure at home going up to 150s over 80s. Hospital course: Ultrasound revealed cholelithiasis without cholecystitis and CBD diameter of 0.6 mm. She had underwent robot assisted laparoscopic cholecystectomy on 03/30/2025. She tolerated procedure well. Opinion are stable controlled with [place] and Zofran. However the next day her LFTs for deranged with bilirubinemia and transaminitis. CT abdomen and pelvis showed choledocholithiasis. She underwent MRCP which showed no stones in the bile duct. Her LFTs improved the next day. We suspect that she might have passed the stone. She is hemodynamically stable and symptomatically better and hence being discharged with the following instructions. Vital Signs Date Time Temp Pulse Resp B/P (MAP) Pulse Ox O2 Delivery O2 Flow Rate FiO2 06/02/25 10:29 14 97 Room Air 0.0 06/02/25 07:07 98.2 49 134/67 (89) Laboratory Tests Test 06/01/25 04:47 06/02/25 06:23 White Blood Count 4.5 X10'3 4.7 X10'3 Red Blood Count 4.09 X10'6 4.08 X10'6 Hemoglobin 11.6 g/dl 11.6 g/dl Hematocrit 34.2 % 34.0 % Mean Corpuscular Volume 83.7 FL 83.4 FL Mean Corpuscular Hemoglobin 28.4 PG 28.5 PG Mean Corpuscular Hemoglobin Concent 33.9 g/dL 34.2 g/dL Red Cell Distribution Width 13.6 % 13.9 % Platelet Count 165 X10'3 163 X10'3 Mean Platelet Volume 8.2 FL 8.5 FL Neutrophils (%) (Auto) 57.8 % 51.6 % Lymphocytes (%) (Auto) 32.0 % 36.3 % Monocytes (%) (Auto) 8.1 % 7.6 % Eosinophils (%) (Auto) 1.5 % 4.0 % Basophils (%) (Auto) 0.6 % 0.5 % Neutrophils # (Auto) 2.6 X10'3 2.4 X10'3 Lymphocytes # (Auto) 1.5 X10'3 1.7 X10'3 Monocytes # (Auto) 0.4 X10'3 0.4 X10'3 Eosinophils # (Auto) 0.1 X10'3 0.2 X10'3 Basophils # (Auto) 0.0 X10'3 0.0 X10'3 CBC Comment Sodium Level 142 MMOL/L 144 MMOL/L Potassium Level 3.5 MMOL/L 3.5 MMOL/L Chloride Level 112 MMOL/L 111 MMOL/L Carbon Dioxide Level 25.8 MMOL/L 25.2 MMOL/L Anion Gap 4 8 Blood Urea Nitrogen 7 MG/DL 6 MG/DL Creatinine 1.08 MG/DL 0.83 MG/DL Estimated GFR/1.73 m2 52 ML/MIN 71 ML/MIN BUN/Creatinine Ratio 6.5 7.2 Glucose Level 103 MG/DL 93 MG/DL Calcium Level 7.5 MG/DL 7.7 MG/DL Magnesium Level 2.1 MG/DL 2.3 MG/DL Total Bilirubin 1.7 MG/DL 0.9 MG/DL Aspartate Amino Transf (AST/SGOT) 386 U/L 105 U/L Alanine Aminotransferase (ALT/SGPT) 1037 U/L 639 U/L Alkaline Phosphatase 120 IU/L 100 IU/L Total Protein 5.8 G/DL 5.9 G/DL Albumin 2.7 G/DL 2.8 G/DL Globulin 3.1 G/DL 3.1 G/DL Albumin/Globulin Ratio 0.9 0.9 Chemistry Comments Imaging: Abdominal ultrasound: Cholelithiasis and positive sonographic Gatica's. Clinical correlation advised. Abdominal and pelvis CT: Cholelithiasis and choledocholithiasis with possible early acute cholecystitis. Further clinical correlation is suggested. MRCP: Status post cholecystectomy without biliary ductal dilation. Hepatomegaly Physical exam on discharge: General: Well alert, well oriented, not confused, not agitated, not in acute distress, well cooperated during the physical. HEENT: Conjunctive are pink, sclerae clear, no icterus, pupil is equal in both sides, reactive to light, no ear discharge, no pharyngeal erythema or an edema. Neck: Supple, no JVD, no lymphadenopathy and thyromegaly. Chest: Equal air entry on both lungs, no added sounds, no wheeze. Cardiovascular: S1-S2 regular sinus rhythm and, regular rate, no gallops, no rubs, no murmurs Abdomen: Surgical site bandaged, no soakage of bandages, Bowel sounds present on auscultation, soft, nontender, no guarding, no rigidity Extremities: No obvious deformities, no pitting edema bilaterally, capillary refill intact, peripheral pulsations are intact on both sides Central Nervous System: No focal neurological deficits, no motor or sensory weakness in all 4 extremities, could move all 4 extremities, 2+ deep tendon reflexes, negative Babinski. Musculoskeletal: No joint swelling, deformities, inflammations, and no scoliosis and back tenderness Skin: Warm and dry. Discharge instructions: Take your medications regularly. Take your pain medication Toradol as needed for 1 week Protonix 40 mg p.o. once daily for 7 days Activity as tolerated No lifting more than 15 pounds for 2 weeks Diet as tolerated Leave Steri-Strips in place for 10-14 days May shower after Follow-up with Dr. Kenneth Keating in 2 weeks. Call for appointment. [phone] Visit ER immediately in case of any symptoms including fever/chills, abdominal pain, abdominal distention, nausea/vomiting. Discussed with the primary care provider regarding blood pressure and lipid lev el control . *Problems/Diagnosis: (1) Cholelithiasis (2) Choledocholithiasis Total Time Spent on D/C: > 30 Minutes Counseling Services Smoking & Tobacco Cessation: N/A Date of Service: Jun 02, 2025 Billing Provider: DARSHANA HERNANDEZ MD Common Visit Codes: 59719-GPF/OBS DISCH DAY >30min Procedure Codes: 94415-[id number] SEDATION +15MIN KEN SHIRLEY, RES Jun 02, 2025 17:23 DARSHANA HERNANDEZ MD Jun 03, 2025 08:23
[2025-06-03] MEDS ORDERED: HYDR-3973 PO (08:23)
== END 2025-06-02 12:35 | disposition home or self-care (01) | DRG 418 ==
LOC: ER 12:17 → ED HOLD 15:08 → SUR 3N 20:00
PROVIDERS: ADMIT Internal Medicine; ATTEND Internal Medicine
PROC: BW211ZZ Computerized Tomography (CT Scan) of Abdomen and Pelvis using Low Osmolar Contrast (ICD-10-PCS; 2025-05-30)
PROC: 0FT44ZZ Resection of Gallbladder, Percutaneous Endoscopic Approach (ICD-10-PCS; principal; 2025-06-01)
PROC: 8E0W4CZ Robotic Assisted Procedure of Trunk Region, Percutaneous Endoscopic Approach (ICD-10-PCS; 2025-06-01)
DX: K80.70 Calculus of gallbladder and bile duct without cholecystitis without obstruction (principal); B17.8 Other specified acute viral hepatitis; E66.811 Obesity, class 1; I10 Essential (primary) hypertension; E78.5 Hyperlipidemia, unspecified; Z68.35 Body mass index [BMI] 35.0-35.9, adult; I25.10 Atherosclerotic heart disease of native coronary artery without angina pectoris; F16.90 Hallucinogen use, unspecified, uncomplicated; K82.8 Other specified diseases of gallbladder
CPT/HCPCS: 96365; 96375; 99285; Z7506; Z7508; 36415; 74177; 74181; 76700; 80053; 80061; 81001; 81025; 83690; 83735; 85025; 87081; 87088; 93005; A4215; A4618; A6258; A6449; A7000; G0378; J0131; J0694; J0696; J1100; J1171; J1200; J1644; J1885; J2003; J2250; J2270; J2405; J2543; J2704; J2765; J3010; J3490; J7030; J7120; Q9967